=== PATIENT | male | born 1955 | race Caucasian/White ===

== ENCOUNTER 2018-09-17 05:04 | Outpatient (CLI) | payer MEDICARE | END 2018-09-17 05:05 | disposition home or self-care (01) | LOC: PET-BROA 05:04 | DX: R91.1 Solitary pulmonary nodule (principal); R07.9 Chest pain, unspecified ==

== ENCOUNTER 2018-10-24 11:47 | Outpatient (CLI) | payer MEDICARE | END 2018-10-24 11:48 | disposition home or self-care (01) | LOC: RAD 11:47 ==

== ENCOUNTER 2018-12-07 07:22 | Outpatient (CLI) | payer MEDICARE | END 2018-12-07 07:23 | disposition home or self-care (01) | LOC: RAD 07:22 | DX: R10.2 Pelvic and perineal pain (principal) ==